=== PATIENT | female | born 1995 | race Caucasian/White ===

== ENCOUNTER → 2016-09-27 | Day surgery (SDC) | payer BC ==
[~2016-09-27] VITALS: Ht 157.5 cm; Wt 52.1 kg
[~2016-09-27] MED LIST: ADVIL200 MG PO; ALLERGY SYRING1 EAC1 SUB-Q; BIRTH CONTROL; CONCERTA36 MG PO; FLOMAX0.4 MG PO; HYDROCODON-ACE1 EAC4 PO; LEXAPRO10 MG PO; NORCO 5-325 TA1 EACH PO; PEPTO BISMOL LIQ1 ML PO; TRI-LINYAH TAB1 EACH PO; TUMS REGULAR ST1 TAB PO; TYLENOL EXTRA500 MG PO; ZOFRAN ODT 4 MG4 MG PO
--- NOTE | ~2016-09-27 | OR ---
PATIENT'S NAME: BENNY THOMAS [facility] AGE: 20 Y [address] ROOM: [place] [address] LOCATION: [facility] [place] ADMIT DATE: 09/27/2016 OR/Procedure Report DISCHARGE DATE: FAMILY PHYSICIAN: Lc Levi MD ATTENDING PHYSICIAN: Stewart Sainz SURGEON: Stewart Sainz MD COLD ROLLING COORDINATOR: DATE OF PROCEDURE: 09/27/2016 PREOPERATIVE DIAGNOSIS: Bilateral nephrolithiasis with symptomatic right distal ureteral calculus with failed conservative management. POSTOPERATIVE DIAGNOSIS: Bilateral nephrolithiasis with symptomatic right distal ureteral calculus with failed conservative management. PROCEDURE: Cystoscopy with right ureteroscopy and stent placement. ANESTHESIA: General. INDICATION: This is a 20-year-old, young lady, who has been struggling with a right ureteral calculus for a week. She was in on the and had a CT scan. I had reviewed that. She had approximately 4-mm right distal calculus as well as bilateral upper tract stones which were nonobstructing. It was felt that she deserved an attempt to pass it spontaneously. She has had off and on symptoms through the week. She was back in the emergency room yesterday with severe right lower quadrant pain with nausea and vomiting. She was admitted for symptomatic management and referred up here this morning for intervention. There is a family history of stones in her grandfather. She has never passed a stone. She has had some right lower quadrant pain in the past from an ovarian cyst. She did not have any fever or elevated white count on outside labs. With her ongoing symptoms, she and her family requested intervention. PROCEDURE: Having obtained her informed consent, the patient was taken to the operating room. She was prepped and draped sterilely and in lithotomy position. General anesthesia was administered by laryngeal airway. A 21- [place] cystoscope was assembled and guided into the urethra. The course of the urethra was unremarkable. The bladder itself demonstrates no tumors, stones, or foreign bodies. Both orifices were normal in location and configuration. She did not have any significant edema at the right side. Bladder examination was confirmed with 70-degree lens. I passed a guidewire up the right side. I meet a minimal resistance. There was no gush of trapped or retained fluid. She has a capacious orifice. I slid the ureteroscope along the wire all the way to the proximal third. No PATIENT'S NAME: BENNY THOMAS [facility] AGE: 20 Y [address] ROOM: [place] [address] LOCATION: [facility] [place] ADMIT DATE: 09/27/2016 OR/Procedure Report DISCHARGE DATE: FAMILY PHYSICIAN: Lc Levi MD ATTENDING PHYSICIAN: Stewart Sainz stone was visualized. We can see some erythema and mild swelling just above the intramural tunnel. I suspect that is where her stone may have been. She has passed a small stone, but with her ongoing symptoms, it was felt to be one of the other ones from the other upper tract stones. However, with her ongoing symptoms, I think it is prudent to stent her since we did not identify a 4-mm stone today. Therefore, the safety wire was back loaded into the cystoscope. Over that, I passed a 4.8 x 24 double-J stent. We have a nice level of placement cystoscopically and fluoroscopically. The dangler string is left in place. The patient tolerated the procedure well. Blood loss was negligible. No specimens were sent. The patient returned to the recovery area, awake and in stable condition. STEWART SAINZ MD [facility]/modl /[id number] CC: Lc Levi MD d: 09/27/16 2126 t: 09/28/16 0953, OPERATIVE SUMMARY
[2016-09-27 10:38] LABS: BASOPHIL % 0.4 %; EOSINOPHIL % 0.5 %; HEMATOCRIT 36.4 % (33.0-46.0); HEMOGLOBIN 12.1 g/dL (11.0-15.0); IMMATURE GRANULOCYTE % 0.3 %; LYMPHOCYTE # 2.7 K/uL (0.8-4.0); LYMPHOCYTE % 34.6 %; MCH 29.6 pg (27.0-34.0); MCHC 33.2 gm/dL (32.0-36.5); MONOCYTE # 0.6 K/uL (0.0-1.0); MONOCYTE % 7.3 %; MPV 10.2 fl (9.4-12.4); NEUTROPHIL # (ANC) 4.4 K/uL (1.8-7.8); NEUTROPHIL % 56.9 %; NRBC % 0 /100WBC (0-0.00); PLATELET COUNT 162 K/uL (150-450); RBC 4.09 M/uL (3.50-5.00); RDW-CV 12.3 % (11.9-14.6); WBC 7.7 K/uL (4.0-11.0)
[2016-09-27 10:54] LABS: ALBUMIN 3.3 gm/dL (3.5-5.0); ALK PHOS 49 IU/L (33-138); ALT 28 IU/L (12-78); ANION GAP 13.7 (10.0-19.0); AST 18 IU/L (10-40); BLOOD UREA NITROGEN 4 mg/dL (6-24); CALCIUM 8.3 mg/dL (8.5-10.5); CHLORIDE 111 mMol/L (96-110); CO2 22 mMol/L (22-32); CREATININE 0.9 mg/dL (0.5-1.1); ESTIMATED GFR (MDRD EQUATION) > 60; POTASSIUM 3.7 mMol/L (3.7-5.1); SODIUM 143 mMol/L (135-145); TOTAL BILIRUBIN 0.4 mg/dL (0.0-1.5); TOTAL PROTEIN 6.1 g/dL (6.0-8.4)
== END ==
LOC: GSDC 09:49 → GPOC 10:00
PROVIDERS: Urology
PROC: 0T768DZ Dilation of Right Ureter with Intraluminal Device, Via Natural or Artificial Opening Endoscopic (ICD-10-PCS; principal; 2016-09-27)
DX: N20.2 Calculus of kidney with calculus of ureter (principal); F32.9 Major depressive disorder, single episode, unspecified; Z88.8 Allergy status to other drugs, medicaments and biological substances; Z79.899 Other long term (current) drug therapy; Z90.49 Acquired absence of other specified parts of digestive tract; Z79.891 Long term (current) use of opiate analgesic
CPT/HCPCS: C1769; J1100; J1956; J2175; J2250; J2405; J3010; J7120

== ENCOUNTER → 2016-12-14 | Day surgery (SDC) | payer BC ==
[~2016-12-14] VITALS: Ht 156.2 cm; Wt 45.6 kg
--- NOTE | ~2016-12-14 | OR ---
PATIENT'S NAME: BENNY THOMAS [facility] AGE: 21 Y [address] ROOM: [place] [address] LOCATION: [facility] [place] ADMIT DATE: 12/14/2016 OR/Procedure Report DISCHARGE DATE: FAMILY PHYSICIAN: Lc Levi MD ATTENDING PHYSICIAN: Stewart Sainz SURGEON: Stewart Sainz MD HOSE BUILDER: DATE OF PROCEDURE: 12/14/2016 PREOPERATIVE DIAGNOSIS: Left nephrolithiasis. POSTOPERATIVE DIAGNOSIS: Left nephrolithiasis. PROCEDURE: Left ESWL. ANESTHESIA: Sedation. INDICATION: This is a 21-year-old lady with a history of bilateral stones. She underwent an acute intervention on the right side earlier this year. She has a 6 mm stone in the left collecting system. She wanted to get through the semester at school and have that treated electively. She presents at this time for that treatment. She had been stented on the right side with her acute symptoms. She should not require stent on the left. DESCRIPTION PROCEDURE: Having obtained her informed consent, the patient was taken to the operating room. She has a placed on the lithotripsy table. The stone was brought in the second focal point ellipsoid and fragmentation is begun. We started at 14 kV and worked up to a maximum of 24 kV. After 2600 impulses, the stone appeared to be nicely fragmented. The patient tolerated the procedure well. Blood loss was negligible. No specimens sent. The patient returned to the outpatient recovery awake and stable condition. PLAN: Will be to have her strain her urine and see if we can get some fragments for stone analysis and then proceed with metabolic evaluation and high risk patient based on her young age and bilateral disease. STEWART SAINZ MD [facility]/modl PATIENT'S NAME: BENNY THOMAS [facility] AGE: 21 Y [address] ROOM: [place] [address] LOCATION: [facility] [place] ADMIT DATE: 12/14/2016 OR/Procedure Report DISCHARGE DATE: FAMILY PHYSICIAN: Lc Levi MD ATTENDING PHYSICIAN: Stewart Sainz /[id number] CC: Lc Levi MD d: 12/14/16 1448 t: 12/21/16 1111, OPERATIVE SUMMARY
[2016-12-14 09:32] LABS: BASOPHIL # 0.1 K/uL (0.0-0.2); BASOPHIL % 0.9 %; EOSINOPHIL % 0.5 %; HEMATOCRIT 38.9 % (33.0-46.0); HEMOGLOBIN 13.4 g/dL (11.0-15.0); IMMATURE GRANULOCYTE % 0.2 %; LYMPHOCYTE # 2.5 K/uL (0.8-4.0); LYMPHOCYTE % 44.6 %; MCH 30.2 pg (27.0-34.0); MCHC 34.4 gm/dL (32.0-36.5); MCV 87.8 fl (83.0-98.0); MONOCYTE # 0.3 K/uL (0.0-1.0); MONOCYTE % 5.3 %; MPV 10.7 fl (9.4-12.4); NEUTROPHIL # (ANC) 2.8 K/uL (1.8-7.8); NEUTROPHIL % 48.5 %; NRBC % 0 /100WBC (0-0.00); RBC 4.43 M/uL (3.50-5.00); RDW-CV 12.1 % (11.9-14.6); WBC 5.7 K/uL (4.0-11.0)
[2016-12-14 09:33] LABS: PLATELET COUNT 222 K/uL (150-450)
[2016-12-14 09:47] LABS: ALBUMIN 3.9 gm/dL (3.5-5.0); ALK PHOS 54 IU/L (33-138); ALT 27 IU/L (12-78); AST 15 IU/L (10-40); BLOOD UREA NITROGEN 11 mg/dL (6-24); CALCIUM 8.8 mg/dL (8.5-10.5); CHLORIDE 113 mMol/L (96-110); CO2 23 mMol/L (22-32); CREATININE 1.1 mg/dL (0.5-1.1); ESTIMATED GFR (MDRD EQUATION) > 60; SODIUM 145 mMol/L (135-145); TOTAL PROTEIN 7.2 g/dL (6.0-8.4)
[2016-12-14 09:49] LABS: TOTAL BILIRUBIN 0.6 mg/dL (0.0-1.5)
== END | disposition disaster alternative care site (69) ==
LOC: GPOC 12-09 09:00 → GSDC 08:53 → GPOC 09:00
PROVIDERS: Urology
PROC: 0TF4XZZ Fragmentation in Left Kidney Pelvis, External Approach (ICD-10-PCS; principal; 2016-12-14)
DX: N20.0 Calculus of kidney (principal); Z88.1 Allergy status to other antibiotic agents; Z88.8 Allergy status to other drugs, medicaments and biological substances
CPT/HCPCS: J1100; J1956; J2175; J2250; J2405; J7030